=== PATIENT | female | born 1970 | race Caucasian/White ===

== ENCOUNTER 2016-07-20 19:22 | Emergency (ER) | payer MEDICAID ==
[~2016-07-20] VITALS: Ht 157.4 cm; Wt 68.0 kg
[2016-07-20 20:03] LABS: BASO % 0.4 % (0.0-1.0); EOS # 0.2 10*3/uL (0.0-0.4); EOS % 2.2 % (1.0-4.0); HEMATOCRIT 42.1 % (37.0-47.0); HEMOGLOBIN 14.9 g/dl (12.0-16.0); LYMPH # 4.1 10*3/uL (1.3-4.4); LYMPH % 57.4 % (27.0-41.0); MEAN CELL VOLUME 107.9 fl (81.0-99.0); MEAN CORPUSCULAR HGB 38.2 pg (27.0-31.0); MEAN CORPUSCULAR HGB CONC 35.4 g/dl (33.0-37.0); MEAN PLATELET VOLUME 9.2 fl (9.6-12.3); MONO # 0.5 10*3/uL (0.1-1.0); MONO % 6.7 % (3.0-9.0); NEUT # 2.4 10*3/uL (2.3-7.9); NEUT % 33.2 % (47.0-73.0); PLATELET COUNT AUTOMATED 151 10*3/uL (130-400); RED CELL DISTRI WIDTH 12.7 % (0-14.5); WHITE BLOOD COUNT 7.1 10*3/uL (4.8-10.8)
[2016-07-20 20:17] LABS: ALBUMIN 3.9 gm/dl (3.1-4.5); ALKALINE PHOSPHATASE 162 U/L (45-117); BILIRUBIN, TOTAL 0.8 mg/dl (0.2-1.0); BUN 6 mg/dl (7-24); CARBON DIOXIDE 28 mmol/L (21-32); CHLORIDE 105 mmol/L (98-107); EST GLOM FILT AFRICAN AMERICAN > 60 ml/min; GLUCOSE 88 mg/dL (65-99); POTASSIUM 4.3 mmol/L (3.5-5.1); SGOT/AST 317 IU/L (3-35); SGPT/ALT 144 U/L (12-78); SODIUM 143 mmol/L (136-145); TOTAL PROTEIN 7.8 gm/dL (6.4-8.2)
[2016-07-20 20:41] LABS: BILIRUBIN NEGATIVE (NEGATIVE); BLOOD NEGATIVE (NEGATIVE); CLARITY CLEAR (CLEAR); COLOR YELLOW (YELLOW); GLUCOSE NEGATIVE (NEGATIVE); KETONE NEGATIVE (NEGATIVE); LEUKO ESTERASE NEGATIVE (NEGATIVE); NITRITE NEGATIVE (NEGATIVE); PROTEIN NEGATIVE (NEGATIVE); SPECIFIC GRAVITY <= 1.005 (1.005-1.030); UROBILINOGEN 0.2 E.U./dl (0.2-1.0)
[2016-07-20 20:49] LABS: URINE AMPHETAMINES < 1000 (1000ng/ml); URINE BARBITURATES < 200 (200ng/ml); URINE COCAINE < 300 (300ng/ml)
[2016-07-20 20:51] LABS: RBC 0-2 rbc/hpf (0-2); URINE REFLEX COMMENT NO (NO)
[2016-07-20] MEDS ORDERED: ZOFRAN ODT4 MG SL (22:28)
[2016-07-20] MEDS ORDERED: CARAFATE1 G1 PO (22:28)
== END 2016-07-20 22:32 | disposition home or self-care (01) ==
LOC: ED 19:22
PROVIDERS: Physician Assistant
DX: F10.10 Alcohol abuse, uncomplicated (principal); G89.29 Other chronic pain; R10.32 Left lower quadrant pain; R11.0 Nausea; F17.200 Nicotine dependence, unspecified, uncomplicated; Z88.6 Allergy status to analgesic agent

== ENCOUNTER → 2016-09-17 | Outpatient (CLI) | payer OTHER ==
[~2016-09-17] MED LIST: CARAFATE1 G1 PO; ZOFRAN ODT4 MG SL
== END | disposition home or self-care (01) ==
LOC: CT 10:45
DX: K42.9 Umbilical hernia without obstruction or gangrene (principal); R10.11 Right upper quadrant pain

== ENCOUNTER → 2016-10-08 | Outpatient (CLI) | payer OTHER | END | disposition home or self-care (01) | LOC: US 09:09 | DX: K76.0 Fatty (change of) liver, not elsewhere classified (principal); R10.11 Right upper quadrant pain ==

== ENCOUNTER 2017-05-14 07:06 | Emergency (ER) | payer OTHER ==
[~2017-05-14] VITALS: Wt 72.6 kg
[2017-05-14 07:34] LABS: HEMATOCRIT 38.8 % (37.0-47.0); HEMOGLOBIN 13.3 g/dl (12.0-16.0); MEAN CELL VOLUME 109.6 fl (81.0-99.0); MEAN CORPUSCULAR HGB 37.6 pg (27.0-31.0); MEAN CORPUSCULAR HGB CONC 34.3 g/dl (33.0-37.0); NUCLEATED RED BLOOD CELL 0.3 % (0.0-0.0); PLATELET COUNT AUTOMATED 131 10*3/uL (130-400); RED BLOOD COUNT 3.54 10*6/uL (4.10-5.10); RED CELL DISTRI WIDTH 13.1 % (0-14.5); WHITE BLOOD COUNT 6.4 10*3/uL (4.8-10.8)
[2017-05-14 07:51] LABS: BASOPHILS 1 % (0-1); TOTAL CELLS COUNTED 100 #CELLS
[2017-05-14 07:52] LABS: PLATELET SUFFICIENCY NORMAL (NORMAL)
[2017-05-14 07:55] LABS: ALBUMIN 3.5 gm/dl (3.1-4.5); ALKALINE PHOSPHATASE 303 U/L (45-117); BUN 6 mg/dl (7-24); CHLORIDE 97 mmol/L (98-107); CREATININE 0.67 mg/dL (0.55-1.02); POTASSIUM 3.7 mmol/L (3.5-5.1); SGOT/AST 135 IU/L (3-35); SGPT/ALT 80 U/L (12-78); SODIUM 136 mmol/L (136-145)
[2017-05-14 08:08] LABS: TROPONIN I < 0.015 ng/ml (<0.045)
== END 2017-05-14 08:59 | disposition home or self-care (01) ==
LOC: ED 07:06
PROVIDERS: Student in an Organized Health Care Education/Training Program
DX: F10.239 Alcohol dependence with withdrawal, unspecified (principal); F17.200 Nicotine dependence, unspecified, uncomplicated; Z88.6 Allergy status to analgesic agent

== ENCOUNTER → 2018-01-18 | Outpatient (CLI) | payer OTHER | END | disposition home or self-care (01) | LOC: US 10:00 | DX: K76.0 Fatty (change of) liver, not elsewhere classified (principal); K82.8 Other specified diseases of gallbladder ==

== ENCOUNTER 2018-06-12 22:18 | Emergency (ER) | payer OTHER ==
[~2018-06-12] VITALS: Ht 157.4 cm; Wt 68.0 kg
[2018-06-12] MEDS ORDERED: PREDNISONE50 MG PO (23:15)
[2018-06-12] MEDS ORDERED: TESSALON PERLE100 MG PO (23:15)
== END 2018-06-12 23:37 | disposition home or self-care (01) ==
LOC: ED 22:18
DX: R07.81 Pleurodynia (principal); R05 Cough; Z88.6 Allergy status to analgesic agent; W03.XXXA Other fall on same level due to collision with another person, initial encounter; Y93.89 Activity, other specified; Y92.89 Other specified places as the place of occurrence of the external cause; Y99.8 Other external cause status

== ENCOUNTER 2019-07-13 18:54 | Emergency (ER) | payer OTHER ==
[~2019-07-13] VITALS: Wt 72.6 kg
[~2019-07-13 18:54] MED LIST changes: +PREDNISONE50 MG PO; +TESSALON PERLE100 MG PO
[2019-07-13] MEDS ORDERED: IBU800 MG PO (21:12)
[2019-07-13] MEDS ORDERED: CYCLOBENZAPRINE10 MG PO (21:12)
== END 2019-07-13 23:21 | disposition home or self-care (01) ==
LOC: ED 18:54
DX: S30.0XXA Contusion of lower back and pelvis, initial encounter (principal); S89.92XA Unspecified injury of left lower leg, initial encounter; F17.200 Nicotine dependence, unspecified, uncomplicated; Z88.5 Allergy status to narcotic agent; Z79.899 Other long term (current) drug therapy; V80.010A Animal-rider injured by fall from or being thrown from horse in noncollision accident, initial encounter; X50.1XXA Overexertion from prolonged static or awkward postures, initial encounter; Y93.89 Activity, other specified; Y92.89 Other specified places as the place of occurrence of the external cause; Y99.8 Other external cause status

== ENCOUNTER 2019-09-02 18:16 | Emergency (ER) | payer OTHER ==
[~2019-09-02] VITALS: Ht 160 cm; Wt 30.4 kg
[~2019-09-02 18:16] MED LIST changes: +CYCLOBENZAPRINE10 MG PO; +IBU800 MG PO
== END 2019-09-02 21:29 | disposition left against medical advice (07) ==
LOC: ED 18:16
DX: S80.02XA Contusion of left knee, initial encounter (principal); Z79.899 Other long term (current) drug therapy; X58.XXXA Exposure to other specified factors, initial encounter; Y93.89 Activity, other specified; Y92.89 Other specified places as the place of occurrence of the external cause; Y99.8 Other external cause status